=== PATIENT | female | born 1980 | race Caucasian/White ===

== ENCOUNTER 2024-04-07 03:04 | Emergency (ER) | payer SELFPAY ==
[~2024-04-07] VITALS: Ht 160 cm; Wt 100.0 kg
[2024-04-07 03:08] VITALS: O2SAT 98
[2024-04-07 04:15] VITALS: BP 100/55; PULSE 72; RESP 20; TEMP 98.2
[2024-04-07 05:07] LABS: BASOPHILS % 1.1 % (0.0-2.0); EOSINOPHILS % 0.8 % (0.0-5.0); HEMATOCRIT. 41.8 % (36.0-48.0); HEMOGLOBIN. 13.9 g/dL (12.0-16.0); LYMPHOCYTES % 41.5 % (20.0-50.0); MEAN CORPUSCULAR HEMOGLOBIN 29.6 pg (28.0-32.0); MEAN CORPUSCULAR HGB CONC 33.3 g/dL (31.0-37.0); MEAN CORPUSCULAR VOLUME 88.8 fL (81.0-99.0); MEAN PLATELET VOLUME 9.8 fl (7.4-10.4); NEUTROPHILS % 53.6 % (40.0-76.0); PLATELET 309 x1000/uL (130-400); RED BLOOD CELL COUNT 4.71 mill/uL (4.2-5.4); RED CELL DISTRIBUTION WIDTH 13.8 % (11.6-14.6); WHITE BLOOD COUNT 7.8 x1000/uL (4.5-11.0)
[2024-04-07 05:16] LABS: CHLORIDE 108 mEq/L (98-107); POTASSIUM 3.9 mEq/L (3.5-5.1); SODIUM 142 mEq/L (136-145)
[2024-04-07 05:17] LABS: CARBON DIOXIDE 23 mEq/L (21-32)
[2024-04-07 05:18] LABS: CALCIUM 9.3 mg/dL (8.7-10.4)
[2024-04-07 05:22] LABS: CREATININE 0.5 mg/dL (0.6-1.0); GLUCOSE 118 mg/dL (70-105)
[2024-04-07 05:23] LABS: UREA NITROGEN BLOOD 8 mg/dL (9-23)
[2024-04-07 05:24] LABS: ALANINE AMINOTRANSFERASE 26 IU/L (10-49); ALBUMIN 4.9 g/dL (3.2-4.8); ASPARTATE AMINOTRANSFERASE 33 IU/L (<34)
[2024-04-07 05:25] LABS: BILIRUBIN TOTAL 0.2 mg/dL (0.1-1.0); PROTEIN TOTAL 8.1 g/dL (6.0-8.3)
[2024-04-07] MEDS ORDERED: ONDA4TAB50 MT (06:26)
[2024-04-07 08:04] LABS: TROPONIN I HIGH SENSITIVITY < 4 ng/L (3.0-34)
== END 2024-04-07 06:36 | disposition home or self-care (01) ==
LOC: ER 03:04
DX: F41.9 Anxiety disorder, unspecified (principal); R11.2 Nausea with vomiting, unspecified; I10 Essential (primary) hypertension
CPT/HCPCS: 36415; 80053; 84484; 85025; 99283

== ENCOUNTER 2024-09-07 21:47 | Emergency (ER) | payer MEDICAID ==
[~2024-09-07] VITALS: Ht 165.1 cm; Wt 98.0 kg
[~2024-09-07 21:47] MED LIST: ONDA4TAB50 MT
[2024-09-07 22:02] VITALS: O2SAT 99
[2024-09-07] MEDS: KETOROLAC 15MG/ML VIAL IM ONE (23:09)
[2024-09-08] MEDS ORDERED: LIDO700A15 TP (00:09)
[2024-09-08] MEDS ORDERED: NAPR-1176 MT (00:09)
[2024-09-08 00:35] VITALS: BP 144/74; PULSE 53; RESP 16; TEMP 37.00296; O2SAT 98
== END 2024-09-08 00:35 | disposition home or self-care (01) ==
LOC: ER 21:47
DX: R07.89 Other chest pain (principal); I10 Essential (primary) hypertension; F41.9 Anxiety disorder, unspecified; Z79.1 Long term (current) use of non-steroidal anti-inflammatories (NSAID)
CPT/HCPCS: 99283; 71045; 81025; 96372; J1885

== ENCOUNTER 2025-04-23 19:32 | Emergency (ER) | payer MEDICAID ==
[~2025-04-23] VITALS: Ht 162.6 cm; Wt 87.2 kg
[~2025-04-23 19:32] MED LIST changes: +LIDO-53 TP; +NAPR-1176 MT
[2025-04-23 20:02] VITALS: TEMP 36.8; O2SAT 97
[2025-04-23] MEDS ORDERED: ACET-2708 MT (23:48)
[2025-04-24] MEDS: ACETAMINOPHEN 325MG TABLET PO ONE (00:12)
[2025-04-24 00:49] VITALS: BP 193/109; PULSE 64; RESP 18; O2SAT 96
== END 2025-04-24 00:50 | disposition home or self-care (01) ==
LOC: ER 19:32
DX: M25.561 Pain in right knee (principal); J45.909 Unspecified asthma, uncomplicated; I10 Essential (primary) hypertension; Z79.899 Other long term (current) drug therapy; Z98.890 Other specified postprocedural states; Z79.1 Long term (current) use of non-steroidal anti-inflammatories (NSAID)
CPT/HCPCS: 99283; 73562; A6449